=== PATIENT | female | born 1940 | race Hispanic/Latino ===

== ENCOUNTER 2018-02-26 16:17 | Emergency (ER) | payer MEDICARE, OTHER ==
[~2018-02-26 16:17] MED LIST: ISOVUE-370 76%-LOCM 1 ML ONE
[2018-02-26 17:02] LABS: #Lymphocytes 1.8 thou/uL (1.20-3.40); #Monocytes 0.4 thou/uL (0.11-0.59); #Neutrophils 2.8 thou/uL (1.40-6.50); %Basophils 0.9 % (0.0-1.0); %Eosinophils 0.6 % (0.0-10.0); %Lymphocytes 34.5 % (21.0-51.0); %Monocytes 8.3 % (0.0-10.0); %Neutrophils 55.8 % (42.0-75.0); Hemoglobin 12.4 g/dL (12.0-16.0); Mean Corpuscular HGB CONC 31.9 g/dL (32.0-36.0); Mean Corpuscular Hemoglobin 30.7 pg (27.0-31.0); Mean Corpuscular Volume 96.1 fL (78.0-98.0); Mean Platelet Volume 6.7 fL (7.4-10.4); Platelet Count 254 thou/uL (130-400); RBC Distribution Width 11.5 % (11.5-14.5); Red Blood Cell (RBC) Count 4.04 mill/uL (4.20-5.40); White Blood Cell (WBC) Count 5.1 thou/uL (4.8-10.8)
[2018-02-26 17:22] LABS: ALT (SGPT) 14 U/L (8-55); AST (SGOT) 20 U/L (5-34); Albumin 4.5 g/dL (3.4-4.8); Alkaline Phosphatase 58 U/L (40-150); Anion Gap 14 mmol/L (10-20); BUN (Urea Nitrogen) 23 mg/dL (9.8-20.1); Bilirubin, Total 0.4 mg/dL (0.2-1.2); Calc. Creatinine Clearance 0 mL/min (70-130); Calcium 9.9 mg/dL (7.8-10.44); Carbon Dioxide 26 mmol/L (23-31); Chloride 104 mmol/L (98-107); Estimated GFR-MDRD 72; Globulin 2.9 g/dL (2.4-3.5); Glucose 65 mg/dL (83-110); Potassium 4.1 mmol/L (3.5-5.1); Protein, Total 7.4 g/dL (6.0-8.3); Sodium 140 mmol/L (136-145)
[2018-02-26 17:26] LABS: CKMB 1.6 ng/mL (0-6.6); Troponin I Less than 0.010 ng/mL (< 0.028)
--- NOTE | 2018-02-26 17:59 | RAD ---
PORTABLE CHEST ONE VIEW: 02/26/18 at 4:38 p.m. HISTORY: Chest pain and shortness of breath.. FINDINGS: The heart size is normal. The lungs are expanded without focal areas of consolidation, pneumothorax o r pleural effusions. There are postop changes and metallic hardware in the thoracolumbar spine. IMPRESSION: No acute process. POS: [facility]
[2018-02-26 19:13] LABS: Troponin I Less than 0.010 ng/mL (< 0.028)
--- NOTE | 2018-02-26 21:22 | CT ---
CONTRAST ENHANCED CTA IMAGES CHEST: 02/26/18 HISTORY: Substernal chest pain. Contrast enhanced CTA of the chest is performed. 2D and 3D reconstructed images performed on an [employer] 3D workstation. CTA chest demonstrates extensive thoracic spine and lumbar spine surgical hardware in place. The mediastinum is unremarkable. Extensive coronary artery calcification seen. Mitral annular calcifi cations also seen. No evidence of lung parenchymal lesions seen. No evidence of filling defects seen in the pulmonary arteries to suggest pulmonary emboli. There appears to be some area of heterogeneity, possibly in the mid portion of the right kidney possi angela representing right renal mass that correlate with pre and postcontrast enhanced dedicated renal C T to evaluate for partial voluming versus right renal malignancy. There is some fullness also seen in the left adrenal gland. Correlate with dedicated dynamic pre and post contrast enhanced CT to evaluate for possible left adrenal mass versus adenoma. This area of lef t adrenal fullness measures approximately 1.4 x 2.5 cm. There is also marked atherosclerotic calcific ation involving the origin of the left internal carotid artery. This may represent significant left i nternal carotid artery disease. Correlate with CT angiography of the carotid arteries and vascular bocanegra rgical consultation. IMPRESSION: 1. Possible right renal and left adrenal masses. 2. No evidence of pulmonary emboli. POS: [facility]
== END 2018-02-26 19:47 | disposition home or self-care (01) ==
LOC: ERS 16:17
DX: I65.22 Occlusion and stenosis of left carotid artery (principal); R07.89 Other chest pain; N28.89 Other specified disorders of kidney and ureter; R22.0 Localized swelling, mass and lump, head; I10 Essential (primary) hypertension; E11.9 Type 2 diabetes mellitus without complications; Z79.84 Long term (current) use of oral hypoglycemic drugs; Z79.899 Other long term (current) drug therapy
CPT/HCPCS: 36415; 71045; 71275; 80053; 82553; 83690; 83880; 84484; 85025; 85379; 93005; 96360

== ENCOUNTER 2018-03-10 14:07 | Observation (INO) | payer MEDICARE, OTHER ==
[2018-03-10 14:46] LABS: #Lymphocytes 1.5 thou/uL (1.20-3.40); #Monocytes 0.4 thou/uL (0.11-0.59); #Neutrophils 4.3 thou/uL (1.40-6.50); %Basophils 0.2 % (0.0-1.0); %Eosinophils 0.7 % (0.0-10.0); %Lymphocytes 24.2 % (21.0-51.0); %Monocytes 6.9 % (0.0-10.0); Hemoglobin 10.4 g/dL (12.0-16.0); Mean Corpuscular HGB CONC 31.9 g/dL (32.0-36.0); Mean Corpuscular Volume 97.2 fL (78.0-98.0); Mean Platelet Volume 6.6 fL (7.4-10.4); Platelet Count 220 thou/uL (130-400); RBC Distribution Width 11.4 % (11.5-14.5); Red Blood Cell (RBC) Count 3.37 mill/uL (4.20-5.40); White Blood Cell (WBC) Count 6.3 thou/uL (4.8-10.8)
[2018-03-10] MEDS ORDERED: Morphine 2 MG/ML SYRINGE ONE (15:11)
[2018-03-10 15:13] LABS: ALT (SGPT) 13 U/L (8-55); AST (SGOT) 17 U/L (5-34); Albumin 3.5 g/dL (3.4-4.8); Alkaline Phosphatase 46 U/L (40-150); Anion Gap 11 mmol/L (10-20); BUN (Urea Nitrogen) 30 mg/dL (9.8-20.1); Bilirubin, Total 0.3 mg/dL (0.2-1.2); Calc. Creatinine Clearance 0 mL/min (70-130); Calcium 8.6 mg/dL (7.8-10.44); Carbon Dioxide 22 mmol/L (23-31); Chloride 109 mmol/L (98-107); Estimated GFR-MDRD 61; Globulin 2.4 g/dL (2.4-3.5); Glucose 150 mg/dL (83-110); Potassium 4.7 mmol/L (3.5-5.1); Protein, Total 5.9 g/dL (6.0-8.3); Sodium 137 mmol/L (136-145)
[2018-03-10 15:20] LABS: CKMB 1.8 ng/mL (0-6.6); Troponin I Less than 0.010 ng/mL (< 0.028)
--- NOTE | 2018-03-10 16:10 | RAD ---
FRONTAL VIEW CHEST: Indication: Chest pain. FINDINGS: There is extensive hardware of the imaged thoracolumbar spine. There is no evidence of lobar consolid ation or pneumothorax. There is slight blunting of the left lateral costophrenic sulcus which could b e on the basis of mild pleural fluid versus pleural thickening. Mild atelectasis also suggested. IMPRESSION: Mild left basilar density as discussed above. Follow up with two view chest could be obtained for con tinued assessment. POS: [facility]
--- NOTE | 2018-03-10 16:34 | CT ---
CT OF HEAD NONCONTRAST: 03/10/18 INDICATION: Pain with facial droop. COMPARISON: 04/25/[address] FINDINGS: There is stable size of ventricular system. Mild chronic ischemic disease is present involving cerebr al white matter. There is age indeterminate hypoattenuation of the right mcneill radiata. No intracran ial hemorrhage. IMPRESSION: 1. No acute intracranial hemorrhage or mass effect. 2. Age indeterminate hypoattenuation of the right mcneill radiata. This may relate to an area of recent ischemia and if necessary could be further assessed with dedicated MRI. 3. No acute intracranial hemorrhage or mass effect. POS: [facility]
[2018-03-10] MEDS ORDERED: Ondansetron PF 4 MG/2 ML Vial IVP PRN (17:22)
[2018-03-10] MEDS ORDERED: Ondansetron ODT 4 MG TAB PO PRN (17:22)
[2018-03-10] MEDS ORDERED: Insulin Regular 300 UNITS/3 ML VIAL SC PRN (17:26)
[2018-03-10] MEDS ORDERED: Dextrose 50% Abboject 50 ML SYRINGE SLOW IVP PRN (17:26)
[2018-03-10] MEDS ORDERED: Dextrose 5% in Water 1,000 ML IV PRN (17:26)
[2018-03-10 17:34] VITALS: BMI 27.6
[2018-03-10] MEDS: Sodium Chloride 0.9% 1,000 ML IV SCH (18:30)
[2018-03-10] MEDS: traMADol HCl 50 MG TAB PO PRN (19:02)
[2018-03-10 19:09] LABS: Troponin I Less than 0.010 ng/mL (< 0.028)
[2018-03-10 21:50] LABS: Troponin I Less than 0.010 ng/mL (< 0.028)
[2018-03-10] MEDS: Nitroglycerin 2% Ointment 1 INCH/1 GM Packet TOP SCH ×2 (22:23→22:27)
--- NOTE | 2018-03-11 01:03 | HP ---
ADMITTING PHYSICIAN: Robert Guzman M.D. HISTORY OF PRESENT ILLNESS: Patient is a 77-year-old female with known history of type 2 di abetes mellitus and hypertension. She presented to the emergency room complaining of substernal ches t pain in middle of her chest associated with shortness of breath. She was actually seen on 8 with similar episode. She was seen and evaluated, but discharged to home. She reported to my offi ce 5 days later, she was given a prescription for sublingual nitroglycerin as well as placed on aspir in 325 mg daily. Attempts were made to try to get her into Cardiology. She reported to the emergenc y room today due to the onset of chest pain. She did take a nitroglycerin at home, became hypotensiv e. She possibly was brought to the emergency room. She does note her chest pain improved after she took a nitroglycerin at this time. She does note she has no further chest pain or shortness of breat h. She notes that she was not very active at all, mostly noted the chest pain occurred at rest. Thi s is the second episode of chest pain, she has had since her ER visit approximately 10 days ago. At this time, she is resting comfortably, no other medical complaints are noted. No nausea, vomiting , diarrhea. She does note the chest pain was mainly in the center of her chest, did seem to have domingo e radiation to her left arm, as she did note some associated dyspnea. No swelling of her lower extre mities, otherwise has been noted. She has no prior history of atherosclerotic coronary artery diseas e. Otherwise, no other medical complaints noted at this time. ALLERGIES: She has no known allergies. CURRENT MEDICATIONS: Include metformin and glipizide as well as other antihypertensive agents that h ave not been reconciled at this time. PAST MEDICAL HISTORY: Positive for type 2 diabetes mellitus and hypertension. PAST SURGICAL HISTORY: Positive for multiple back surgeries, hysterectomy as well as gallbladder maury hermila. SOCIAL AND PERSONAL HISTORY: She is . Her has rather significant dementia. She is a primary caregiver at home. FAMILY HISTORY: Noncontributory at this time. PHYSICAL EXAMINATION: VITAL SIGNS: Blood pressure 120/52, pulse 98, respirations 18, O2 sat at 95%. GENERAL: She is alert, active, in no distress at this time. HEENT: Normocephalic, atraumatic. Sclerae and conjunctivae are clear. Throat is clear. NECK: Supple, full range of motion, no masses. LUNGS: Clear. HEART: Reveals a regular rate and rhythm without murmur, gallops, or rubs. ABDOMEN: Soft, nontender, bowel sounds are active. There is no hepatosplenomegaly noted. No eviden ce of any rebound or guarding otherwise noted. EXTREMITIES: Showed no evidence of any clubbing, edema, or cyanosis otherwise. Pulses are intact di stally to both arms and lower extremities. LABORATORY DATA: Hemoglobin is 10.4, hematocrit 32.7. Sodium 137, potassium 4.7, chloride 109, CO2 of 22, BUN 30, creatinine 0.9. Initial troponin is less than 0.01. EKG reveals sinus rhythm without acute changes. Chest x-ray is otherwise normal. CT scan of the brain was done here in the emergenc y room, which was normal as well. IMPRESSION: This is a 77-year-old female with risk factors for development of angina includ ing type 2 diabetes mellitus, hypertension who probably does have in my opinion some form of unstable angina or cardiac disease present at this time. PLAN: I discussed the findings with the patient and recommended that she would admit, to be placed i n observation at this time. We will get Cardiology consult. I feel like the best course of action randi ay be directed cardiac catheterization. I will leave that up to Cardiology due to her back con dition, she may not be able to participate in a stress test situation. Nonetheless, she is stable at this time. We will continue to monitor her situation through the night.
[2018-03-11] MEDS: Sodium Chloride 0.9% 1,000 ML IV SCH (08:36)
[2018-03-11] MEDS: Terazosin HCl 5 MG CAP PO SCH (08:57)
[2018-03-11] MEDS ORDERED: Aspirin 325 MG TAB PO SCH (09:00)
[2018-03-11] MEDS ORDERED: Lidocaine 1% w/Epinephrine 1:100K 30 ML VIAL ONE ×2 (12:17)
[2018-03-11] MEDS ORDERED: Lidocaine 1% (PF) 30 ML VIAL ONE (12:18)
--- NOTE | 2018-03-11 12:31 | CON ---
DATE OF CONSULTATION: 03/11/2018 REASON FOR CONSULTATION: Chest pain. HISTORY OF PRESENT ILLNESS: Ms. Ponce is a very pleasant 77-year-old female who comes t o the hospital for chest pain. She was at home and had an episode of chest tightness. She took a bocanegra blingual nitro and it dropped her blood pressures, so she was brought in for evaluation for this. Elsie carter had a similar episode back in February. She was admitted and discharged home. She saw Dr. Guzman, her primary care doctor a few days after that admission in early February and was prescribed aspirin and sublingual nitro so she had the sublingual nitro with her. She presented again today secondary t o ongoing episodes of chest pain. PAST MEDICAL HISTORY: 1. Type 2 diabetes. 2. Hypertension. PAST SURGICAL HISTORY: 1. Multiple back surgeries. 2. Hysterectomy. 3. Cholecystectomy. OUTPATIENT MEDICATIONS: 1. Nitroglycerin sublingual. 2. Candesartan 60 mg b.i.d. 3. Metformin 500 mg b.i.d. 4. Glipizide 10 mg b.i.d. 5. Terazosin 5 mg a day. ALLERGIES: No known drug allergies. SOCIAL HISTORY: No alcohol, tobacco or drugs. She lives at home with her who has very signi ficant dementia and is actually dying from this according to Ms. Ponce and it is very stressful f or her. FAMILY HISTORY: Noncontributory. REVIEW OF SYSTEMS: A 12-point review of systems was done and is all negative unless stated in the hi story of present illness. PHYSICAL EXAMINATION: VITAL SIGNS: Temperature 97.9, pulse 90, respiration rate 20, satting 91% on room air, blood pressur e 159/71. GENERAL: Awake, alert, oriented x3, in no distress. HEENT: Normocephalic, atraumatic. NECK: Supple. LUNGS: Clear. CARDIOVASCULAR: S1, S2, no S3, S4, no murmurs. ABDOMEN: Soft, positive bowel sounds. EXTREMITIES: No edema. SKIN: Warm and dry. LABORATORY WORK: Reviewed. CBC with a white count of 6.3, hemoglobin 10.4, platelet count 220. Lillian paul with a chloride of 109, carbon dioxide 22, BUN of 30, creatinine 0.9, GFR was 61. Troponin is undetectable x3. CK-MB is normal. Glucose was 156. Albumin of 3.5. EKG was reviewed. ASSESSMENT AND PLAN: 1. Chest pain concerning for unstable angina. 2. Coronary artery disease. This is evidenced by the recent CT of the chest that showed significant coronary artery calcification worse on the left anterior descending. 3. Peripheral vascular disease: Has some calcifications on the carotid artery. She will need a Do ppler ultrasound of the carotids during this admission and possibly CT angiogram. PLAN: The patient needs to be further risk stratify with a heart catheterization. We spoke at len h about the risks and benefits of the procedure, risks including, but not limited to stroke, CO, deat h, bleeding and need for blood transfusion, limb loss, organ loss. The patient verbalized understand ing of this and agrees to proceed. Further recommendations per results of coronary angiogram.
[2018-03-11] MEDS: Nitroglycerin 2% Ointment 1 INCH/1 GM Packet TOP SCH ×2 (12:40→19:39)
[2018-03-11] MEDS ORDERED: Midazolam HCl 2 mg/2 ml Vial ONE (12:46)
[2018-03-11] MEDS ORDERED: Fentanyl 100 MCG/2 ML VIAL ONE (12:47)
--- NOTE | 2018-03-11 13:00 | PRG ---
DATE OF SERVICE: 03/11/2018 Ms. Ponce had an uneventful night. She was unsure if the laboratory helper had visited with her. Dr. Monteiro has seen her now. I saw her early this morning. She has no further complaints. PHYSICAL EXAMINATION: VITAL SIGNS: BP 115/71, temperature 97.9. LUNGS: Clear. HEART: Reveals no murmur. LABORATORY: Troponins are otherwise negative. IMPRESSION: This is a 77-year-old female with high risk factors for development for atheros clerotic coronary artery disease. PLAN: She is being taken to the [facility] at this time.
[2018-03-11] MEDS ORDERED: TICAGRELOR 90 MG TABLET ONE (13:36)
[2018-03-11] MEDS ORDERED: Heparin 10,000 UNITS/1 ML VIAL ONE (13:36)
[2018-03-11] MEDS ORDERED: Nitroglycerin 100MG/250ML BOT 250 ML ONE (13:36)
[2018-03-11] MEDS ORDERED: Iopamidol 370 76% 100 ML VIAL ONE (13:53)
[2018-03-11] MEDS ORDERED: Iopamidol 370 76% 50 ML VIAL FS ONE (13:53)
[2018-03-11] MEDS ORDERED: Nitroglycerin 0.4 MG TAB (25 Tab Bottle) SL PRN (14:19)
[2018-03-11] MEDS ORDERED: Sodium Chloride 0.9% 1,000 ML IV SCH (14:30)
[2018-03-11] MEDS: Carvedilol 3.125 MG TAB PO SCH (19:49)
[2018-03-11] MEDS: TICAGRELOR 90 MG TABLET PO SCH (19:50)
[2018-03-11] MEDS: traMADol HCl 50 MG TAB PO PRN (19:50)
[2018-03-11] MEDS ORDERED: Atorvastatin Calcium 40 MG TAB PO SCH (21:00)
[2018-03-12] MEDS: traMADol HCl 50 MG TAB PO PRN (02:06)
[2018-03-12 06:35] LABS: #Lymphocytes 1.2 thou/uL (1.20-3.40); #Monocytes 0.5 thou/uL (0.11-0.59); #Neutrophils 5.3 thou/uL (1.40-6.50); %Basophils 0.1 % (0.0-1.0); %Eosinophils 0.6 % (0.0-10.0); %Lymphocytes 17.3 % (21.0-51.0); %Monocytes 7.1 % (0.0-10.0); Hemoglobin 9.5 g/dL (12.0-16.0); Mean Corpuscular HGB CONC 32.8 g/dL (32.0-36.0); Mean Corpuscular Hemoglobin 31.1 pg (27.0-31.0); Mean Corpuscular Volume 94.7 fL (78.0-98.0); Mean Platelet Volume 6.8 fL (7.4-10.4); Platelet Count 209 thou/uL (130-400); RBC Distribution Width 11.4 % (11.5-14.5); Red Blood Cell (RBC) Count 3.04 mill/uL (4.20-5.40); White Blood Cell (WBC) Count 7.1 thou/uL (4.8-10.8)
[2018-03-12 06:48] LABS: ALT (SGPT) 14 U/L (8-55); AST (SGOT) 22 U/L (5-34); Albumin 3.3 g/dL (3.4-4.8); Alkaline Phosphatase 42 U/L (40-150); Anion Gap 9 mmol/L (10-20); BUN (Urea Nitrogen) 14 mg/dL (9.8-20.1); Bilirubin, Total 0.6 mg/dL (0.2-1.2); Calc. Creatinine Clearance 67 mL/min (70-130); Calcium 8.9 mg/dL (7.8-10.44); Carbon Dioxide 27 mmol/L (23-31); Chloride 106 mmol/L (98-107); Estimated GFR-MDRD 76; Globulin 2.3 g/dL (2.4-3.5); Glucose 87 mg/dL (83-110); Potassium 4.1 mmol/L (3.5-5.1); Protein, Total 5.6 g/dL (6.0-8.3); Sodium 138 mmol/L (136-145)
--- NOTE | 2018-03-12 08:12 | PRG ---
DATE OF SERVICE: 03/12/2018. SUBJECTIVE: Ms. Ponce is status post cardiac catheterization with stent placement. She is doing well. She has no medical complaints. OBJECTIVE: VITAL SIGNS: Blood pressure 134/62, O2 sats 94%. LUNGS: Clear. HEART: Reveals a regular rate and rhythm without murmurs, gallops, or rubs. LABORATORY DATA: Hemoglobin 9.5, hematocrit 28.8. Chemistry: Sodium is 138, creatinine 0.74. Her blood sugars are adequately controlled. IMPRESSION: Atherosclerotic coronary artery disease, status post cardiac catheterization with stent placement, now on Brilinta. PLAN: The patient possibly could be discharged today from my standpoint that would be safe. I have informed her to withhold from metformin until Thursday. She knows that she needs to follow up with me in approximately 10 days. Further followup will be as an outpatient with Cardiology.
[2018-03-12] MEDS ORDERED: Aspirin 325 MG TAB PO SCH (08:27)
[2018-03-12] MEDS ORDERED: Lisinopril 2.5 MG TAB PO SCH (09:00)
[2018-03-12] MEDS: TICAGRELOR 90 MG TABLET PO SCH (09:08)
[2018-03-12] MEDS: Terazosin HCl 5 MG CAP PO SCH (09:08)
[2018-03-12] MEDS: Carvedilol 3.125 MG TAB PO SCH (09:08)
--- NOTE | 2018-03-12 10:09 | PDOC.CTH ---
Cardiology Progress Note - Subjective She is doing well. No chest pain. Has a small bruise on her right groin but no hematoma. - Objective Vital Signs Temp Pulse Resp BP Pulse Ox 03/12/18 07:47 97.3 F L 83 22 H 138/61 93 L 03/12/18 06:56 79 20 134/62 94 L 03/12/18 02:45 93 L 03/11/18 23:16 98.4 F 81 15 117/56 L 91 L Weight 146 lb 6.4 oz 03/11/18 03/12/18 03/13/18 06:59 06:59 06:59 Intake Total 924 1510 Output Total 375 400 Balance 549 1110 - Physical Examination General/Neuro: alert & oriented x3, NAD Neck: no JVD present Lungs: CTA, unlabored respirations Heart: RRR Abdomen: NT/ND Extremities: other: (no edema) - Telemetry Telemetry Rhythm: NSR - Labs Result Diagrams: 03/12/18 05:54 03/12/18 05:54 Troponin/CKMB CK-MB (CK-2) 1.8 ng/mL (0-6.6) 03/10/18 14:35 Troponin I Less than 0.010 ng/mL (< 0.028) 03/10/18 21:14 - Assessment/Plan 1. Unstable angina 2. CAD. 3. S/P Stent to the LAD and RCA. PLAN: - ROSSY with brilinta and aspirin 81 mg daily - Statin, BB, ARB. - May discharge home. - Will follow up in 3 weeks as previously scheduled.
[2018-03-12 11:38] VITALS: TEMP 98.2
[2018-03-12] MEDS: Nitroglycerin 2% Ointment 1 INCH/1 GM Packet TOP SCH (15:01)
[2018-03-12 15:19] VITALS: BP 130/63
--- NOTE | 2018-03-12 17:05 | EKG ---
Test Reason : CP Blood Pressure : / mmHG Vent. Rate : 095 BPM Atrial Rate : 095 BPM P-R Int : 116 ms QRS Dur : 076 ms QT Int : 358 ms P-R-T Axes : 038 011 008 degrees QTc Int : 449 ms Normal sinus rhythm Normal ECG Confirmed by BENJY MORENO ([id number]), continuity editor TONI ROGERS ([id number]) on 03/12/2018 5:04:28 PM Referred By: Confirmed By:BENJY MORENO
--- NOTE | 2018-03-17 08:11 | EKG ---
Test Reason : POST STENT-1LAD/1RCA Blood Pressure : / mmHG Vent. Rate : 081 BPM Atrial Rate : 080 BPM P-R Int : 132 ms QRS Dur : 076 ms QT Int : 376 ms P-R-T Axes : 062 029 030 degrees QTc Int : 436 ms Undetermined rhythm Otherwise normal ECG When compared with ECG of 10-MAR-2018 14:10, (Unconfirmed) Current undetermined rhythm precludes rhythm comparison, needs review Confirmed by DR. Leslee RUGGIERO ([id number]) on 03/17/2018 8:10:36 AM Referred By: ZACH Confirmed By:DR. Leslee RUGGIERO
--- NOTE | 2018-03-17 08:12 | EKG ---
Test Reason : Blood Pressure : / mmHG Vent. Rate : 080 BPM Atrial Rate : 080 BPM P-R Int : 150 ms QRS Dur : 076 ms QT Int : 378 ms P-R-T Axes : 063 013 020 degrees QTc Int : 435 ms Normal sinus rhythm Low voltage QRS Borderline ECG When compared with ECG of 11-MAR-2018 14:45, (Unconfirmed) Previous ECG has undetermined rhythm, needs review Confirmed by DR. Leslee RUGGIERO ([id number]) on 03/17/2018 8:12:32 AM Referred By: ZACH Confirmed By:DR. Leslee RUGGIERO
== END 2018-03-12 15:39 | disposition home or self-care (01) ==
LOC: ERS 14:07 → 2SW 17:21
PROVIDERS: ADMIT Family Medicine; ATTEND Family Medicine
PROC: 027135Z Dilation of Coronary Artery, Two Arteries with Two Drug-eluting Intraluminal Devices, Percutaneous Approach (ICD-10-PCS; principal; 2018-03-11)
PROC: 4A033BC Measurement of Arterial Pressure, Coronary, Percutaneous Approach (ICD-10-PCS; 2018-03-11)
DX: I25.110 Atherosclerotic heart disease of native coronary artery with unstable angina pectoris (principal); I10 Essential (primary) hypertension; E11.9 Type 2 diabetes mellitus without complications; I73.9 Peripheral vascular disease, unspecified; Z95.5 Presence of coronary angioplasty implant and graft; Z79.84 Long term (current) use of oral hypoglycemic drugs; Z79.899 Other long term (current) drug therapy
CPT/HCPCS: 70450; 71045; 80053 ×2; 82553; 82962 ×3; 84484 ×2; 85025 ×2; 85347; 93005 ×2; 93454; 93571; 93798; 94760; 96361 ×2; 96374; 99285; C1760; C1769 ×3; C1874; C1887; C9600; C9601; G0378 ×2; 36415; 36416; 92928; 92929; 93010; 99152; 99153; J0153; J1644; J1815; J2001; J2250; J2270; J3010

== ENCOUNTER 2018-03-16 15:42 | Observation (INO) | payer MEDICARE, OTHER ==
[2018-03-16 16:47] LABS: #Eosinphils 0.1 thou/uL (0.0-0.7); #Monocytes 0.6 thou/uL (0.11-0.59); #Neutrophils 4.5 thou/uL (1.40-6.50); %Basophils 0.4 % (0.0-1.0); %Eosinophils 0.9 % (0.0-10.0); %Lymphocytes 16.4 % (21.0-51.0); %Monocytes 9.1 % (0.0-10.0); %Neutrophils 73.2 % (42.0-75.0); Hemoglobin 9.5 g/dL (12.0-16.0); Mean Corpuscular HGB CONC 32.9 g/dL (32.0-36.0); Mean Corpuscular Hemoglobin 31.4 pg (27.0-31.0); Mean Corpuscular Volume 95.6 fL (78.0-98.0); Mean Platelet Volume 6.7 fL (7.4-10.4); Platelet Count 249 thou/uL (130-400); RBC Distribution Width 11.9 % (11.5-14.5); Red Blood Cell (RBC) Count 3.03 mill/uL (4.20-5.40); White Blood Cell (WBC) Count 6.1 thou/uL (4.8-10.8)
[2018-03-16 17:10] LABS: ALT (SGPT) 16 U/L (8-55); AST (SGOT) 19 U/L (5-34); Albumin 3.8 g/dL (3.4-4.8); Alkaline Phosphatase 50 U/L (40-150); Anion Gap 10 mmol/L (10-20); BUN (Urea Nitrogen) 17 mg/dL (9.8-20.1); Bilirubin, Total 0.5 mg/dL (0.2-1.2); Calc. Creatinine Clearance 0 mL/min (70-130); Calcium 9.1 mg/dL (7.8-10.44); Carbon Dioxide 26 mmol/L (23-31); Chloride 103 mmol/L (98-107); Estimated GFR-MDRD 54; Globulin 2.7 g/dL (2.4-3.5); Glucose 213 mg/dL (83-110); Potassium 4.1 mmol/L (3.5-5.1); Protein, Total 6.5 g/dL (6.0-8.3); Sodium 135 mmol/L (136-145)
[2018-03-16 17:12] LABS: CKMB 1.4 ng/mL (0-6.6); Troponin I Less than 0.010 ng/mL (< 0.028)
--- NOTE | 2018-03-16 18:20 | RAD ---
PORTABLE CHEST ONE VIEW: Date: 03-16-18 Time: 3:48 p.m. History: Chest pain. FINDINGS/IMPRESSION: Comparison made with exam of 03-10-18. Post op changes and metallic hardware in the spine are again seen. The heart size is normal. No lobar consolidation or pneumothoraces or large effusions are seen. There is blunting of the costophrenic a ngles. POS: [facility]
[2018-03-16] MEDS ORDERED: HumaLOG 300 UNITS/3 ML VIAL SC PRN (20:03)
[2018-03-16] MEDS ORDERED: Nitroglycerin 0.4 MG TAB (25 Tab Bottle) SL PRN (20:09)
[2018-03-16 20:13] LABS: Troponin I Less than 0.010 ng/mL (< 0.028)
[2018-03-16 20:19] VITALS: BMI 28.9
[2018-03-16] MEDS ORDERED: Acetaminophen 325 MG TAB PO PRN (20:19)
[2018-03-16] MEDS ORDERED: Atorvastatin Calcium 40 MG TAB PO SCH (21:00)
[2018-03-16] MEDS: glipiZIDE 10 MG TAB PO SCH (21:25)
[2018-03-16] MEDS: metFORMIN 500 MG TAB PO SCH (21:25)
[2018-03-16] MEDS: TICAGRELOR 90 MG TABLET PO SCH (21:25)
[2018-03-16] MEDS: Carvedilol 3.125 MG TAB PO SCH (21:25)
[2018-03-16 22:52] LABS: Troponin I Less than 0.010 ng/mL (< 0.028)
[2018-03-16] MEDS: ALPRAZolam 0.25 MG TAB PO PRN (23:25)
--- NOTE | 2018-03-17 00:11 | HP ---
PRIMARY CARE PHYSICIAN: Dr. Robert Guzman. CHIEF COMPLAINT: Anxiety, chest pain. HISTORY OF PRESENT ILLNESS: This is a 77-year-old female patient with a history of type 2 diabetes, hypertension, hyperlipidemia with a recent admission on 03/10/2018 for chest pain, abnormal cardiac catheterization, and stent placement, who was discharged home in good condition on 03/12/2018. Three days ago, her who has been ill, , and she has had increased stress and anxiety since that time. She was at home today under duress and stress from the of her when she started feeling overwhelmed. She developed chest pain, which improved with nitroglycerin. She had some shortness of breath, but no diaphoresis. She felt weak, called her daughter, but could not get out of bed at that time. She denies any fall, denies syncope, but increased weakness. EMS arrived and brought her to the emergency department. She is ruling out for an AR with negative cardiac enzymes and no EKG changes from her prior admission, but now being admitted due to the onset of her chest pain and shortness of breath as well as recent cardiac catheterization with stent placement, 6 days ago. She was given her aspirin in the emergency department and no other medications. She does feel better and now that she is resting. Due to her chest pain, elevated blood pressure, and stress, she is being admitted for observation. PAST MEDICAL HISTORY: Recently diagnosed coronary artery disease, status post stent placement; hypertension; hyperlipidemia; type 2 diabetes; history of back pain. MEDICATIONS: Include aspirin 81 mg daily, Lipitor 40 mg daily, candesartan 16 mg daily, carvedilol 3.125 mg b.i.d., glipizide 10 mg b.i.d., metformin 500 mg b.i.d., terazosin 5 mg daily, Brilinta 90 mg b.i.d. ALLERGIES: No known drug allergies. PAST SURGICAL HISTORY: Includes recent cardiac catheterization with stent placement, multiple back surgeries, hysterectomy, gallbladder surgery. 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 Quit smoking about 25 years ago. No alcohol. She has a supportive family. FAMILY HISTORY: Positive for heart disease in her father. REVIEW OF SYSTEMS: As per the history of present illness: General: Denies any recent fevers, chills, or recent illness. HEENT: Denies headache, visual, or hearing changes. Cardiac: As per the history of present illness. Pulmonary : Denies cough or hemoptysis. Gastrointestinal: No nausea, vomiting, abdominal pain, melena, hematochezia. Genitourinary: Denies dysuria or hematuria. Neurologic: No weakness, seizures, or syncope. Musculoskeletal: Positive chronic back pain. PHYSICAL EXAMINATION: VITAL SIGNS: Temperature 97.9, pulse of 80, respirations 18, blood pressure 157 /71, pulse ox is 98% on room air. GENERAL: She is awake and alert, in no acute distress. Speech is clear. NECK: Supple, no bruits. HEART: Regular rate and rhythm. LUNGS: Clear bilaterally. ABDOMEN: Positive bowel sounds, soft, nontender, nondistended. EXTREMITIES: No clubbing, cyanosis, or edema, 2+ peripheral pulses bilaterally. PSYCH: anxious, flat affect. Tearful at times LABORATORY DATA AND X-RAY FINDINGS: White blood cell count 6100, hemoglobin and hematocrit 9.5 and 28.9, which is stable from her baseline, platelets of 249. Sodium 135, potassium 4.1, chloride 103, CO2 of 26, BUN and creatinine 17 and 1.0 with GFR of 54. Serum glucose of 213. Accu-Chek of 174. AST and ALT are normal. Troponin I is less than 0.01 x2. Albumin of 3.8. Chest x-ray shows no active disease. ASSESSMENT AND PLAN: This is a 77-year-old female patient with a recent diagnosis of coronary artery disease, status post cardiac catheterization with stent placement, postop day #6 with onset of chest pain and anxiety. 1. Chest pain. Continue rule out AR protocol. We will notify Cardiology for consultation. Continue aspirin and Brilinta. 2. Anxiety and grieving process. We will initiate Zoloft 25 mg daily and Xanax p.r.n. anxiety and panic. 3. Type 2 diabetes. Continue oral meds and insulin sliding scale. 4. Hypertension. We will continue the oral meds including candesartan and terazosin. MTDD
[2018-03-17 03:58] LABS: Anion Gap 11 mmol/L (10-20); BUN (Urea Nitrogen) 16 mg/dL (9.8-20.1); Calc. Creatinine Clearance 65 mL/min (70-130); Calcium 9.1 mg/dL (7.8-10.44); Carbon Dioxide 25 mmol/L (23-31); Chloride 108 mmol/L (98-107); Estimated GFR-MDRD 70; Glucose 62 mg/dL (83-110); Potassium 3.5 mmol/L (3.5-5.1); Sodium 140 mmol/L (136-145)
[2018-03-17] MEDS: TICAGRELOR 90 MG TABLET PO SCH (08:00)
[2018-03-17] MEDS: glipiZIDE 10 MG TAB PO SCH (08:00)
[2018-03-17] MEDS: Carvedilol 3.125 MG TAB PO SCH (08:00)
[2018-03-17] MEDS: metFORMIN 500 MG TAB PO SCH (08:00)
--- NOTE | 2018-03-17 08:01 | DPRG ---
DATE OF SERVICE: 03/17/2018 SUBJECTIVE: Ms. Ponce states she is feeling better. She has had no further chest pain, no short ness of breath. She is still some stress due to recent of her . PHYSICAL EXAMINATION: VITAL SIGNS: Blood pressure 146/59. LABORATORY: All troponins are normal and negative. Chemistry is normal. LUNGS: Clear. HEART: Reveals no murmur. IMPRESSION: 1. Acute anxiety reaction. 2. History of atherosclerotic coronary artery disease. PLAN: I feel she is stable to be discharged home. She will follow up with Dr. Monteiro as an outpatie nt. We have prescribed sertraline, and Xanax for home use. On discharge she was to maintain her home medications of terazosin 5 mg daily, metformin 500 mg b.i.d ., glipizide 10 mg b.i.d., Brilinta 90 mg b.i.d., carvedilol 3.125 mg b.i.d., candesartan 16 mg daily , atorvastatin 40 mg daily, aspirin 81 mg daily. Additionally, given prescription for sertraline 25 mg daily, as well as Xanax 0.25 mg p.o. t.i.d. p.r.n. stress and anxiety.
[2018-03-17] MEDS: ALPRAZolam 0.25 MG TAB PO PRN (08:04)
[2018-03-17] MEDS ORDERED: Aspirin 81 mg Enteric Coated Tablet PO SCH (09:00)
[2018-03-17] MEDS ORDERED: Terazosin HCl 5 MG CAP PO SCH ×2 (09:00)
[2018-03-17 11:29] VITALS: BP 155/67; TEMP 97.7
[2018-03-17] MEDS ORDERED: Sodium Chloride 0.9% 500 ML IV SCH (11:45)
--- NOTE | 2018-03-21 22:06 | EKG ---
Test Reason : Blood Pressure : / mmHG Vent. Rate : 068 BPM Atrial Rate : 068 BPM P-R Int : 152 ms QRS Dur : 086 ms QT Int : 402 ms P-R-T Axes : 057 029 038 degrees QTc Int : 427 ms Normal sinus rhythm Normal ECG When compared with ECG of 16-MAR-2018 15:52, (Unconfirmed) No significant change was found Confirmed by ASAD MAC ([id number]) on 03/21/2018 10:06:00 PM Referred By: KELTON Confirmed By:ASAD MAC
--- NOTE | 2018-03-21 22:08 | EKG ---
Test Reason : CODE GREEN Blood Pressure : / mmHG Vent. Rate : 068 BPM Atrial Rate : 068 BPM P-R Int : 166 ms QRS Dur : 082 ms QT Int : 404 ms P-R-T Axes : 072 033 031 degrees QTc Int : 429 ms Normal sinus rhythm with sinus arrhythmia ST elevation, consider early repolarization Borderline ECG When compared with ECG of 17-MAR-2018 06:40, (Unconfirmed) No significant change was found Confirmed by ASAD MAC ([id number]) on 03/21/2018 10:08:03 PM Referred By: MALIK Confirmed By:ASAD MAC
== END 2018-03-17 14:35 | disposition home or self-care (01) ==
LOC: ERS 15:42 → 2SW 19:42
PROVIDERS: ADMIT Family Medicine; ATTEND Family Medicine
DX: R07.9 Chest pain, unspecified (principal); F41.1 Generalized anxiety disorder; I25.10 Atherosclerotic heart disease of native coronary artery without angina pectoris; E78.5 Hyperlipidemia, unspecified; E11.9 Type 2 diabetes mellitus without complications; I10 Essential (primary) hypertension; Z87.891 Personal history of nicotine dependence; Z79.02 Long term (current) use of antithrombotics/antiplatelets; Z79.82 Long term (current) use of aspirin; Z79.84 Long term (current) use of oral hypoglycemic drugs; Z79.899 Other long term (current) drug therapy; Z95.5 Presence of coronary angioplasty implant and graft
CPT/HCPCS: 71045; 80048; 80053; 82553; 82962 ×2; 84484 ×2; 85025; 93005 ×2; 99285; G0378 ×2; 36415; 36416; 93010

== ENCOUNTER 2021-03-02 14:10 | Emergency (ER) | payer MEDICARE, OTHER ==
[2021-03-02] MEDS ORDERED: traMADol HCl 50 MG TAB ONE (16:52)
[2021-03-02 17:36] LABS: #Lymphocytes 1.4 thou/uL (1.20-3.40); #Monocytes 0.6 thou/uL (0.11-0.59); #Neutrophils 4.9 thou/uL (1.40-6.50); %Basophils 0.5 % (0.0-1.0); %Eosinophils 0.2 % (0.0-10.0); %Lymphocytes 20.6 % (21.0-51.0); %Monocytes 8.5 % (0.0-10.0); %Neutrophils 70.1 % (42.0-75.0); Hemoglobin 13.1 g/dL (12.0-16.0); Mean Corpuscular HGB CONC 34.6 g/dL (32.0-36.0); Mean Corpuscular Hemoglobin 32.4 pg (27.0-31.0); Mean Corpuscular Volume 93.8 fL (78.0-98.0); Mean Platelet Volume 6.7 fL (7.4-10.4); Platelet Count 247 thou/uL (130-400); RBC Distribution Width 11.5 % (11.5-14.5); Red Blood Cell (RBC) Count 4.04 mill/uL (4.20-5.40)
[2021-03-02 17:52] LABS: ALT (SGPT) 17 U/L (8-55); AST (SGOT) 23 U/L (5-34); Albumin 4.1 g/dL (3.4-4.8); Alkaline Phosphatase 81 U/L (40-110); Anion Gap 15 mmol/L (10-20); BUN (Urea Nitrogen) 25 mg/dL (9.8-20.1); Bilirubin, Total 0.6 mg/dL (0.2-1.2); CK (CPK) 160 U/L (29-168); Calc. Creatinine Clearance 0 mL/min (70-130); Calcium 9.4 mg/dL (7.8-10.44); Carbon Dioxide 28 mmol/L (23-31); Chloride 103 mmol/L (98-107); Globulin 2.8 g/dL (2.4-3.5); Glucose 108 mg/dL (83-110); Potassium 4.3 mmol/L (3.5-5.1); Protein, Total 6.9 g/dL (5.8-8.1); Sodium 142 mmol/L (136-145)
== END 2021-03-02 22:24 | disposition home or self-care (01) ==
LOC: ERS 14:10
DX: T84.216A Breakdown (mechanical) of internal fixation device of vertebrae, initial encounter (principal); Z79.82 Long term (current) use of aspirin; Z79.899 Other long term (current) drug therapy; I10 Essential (primary) hypertension; E11.9 Type 2 diabetes mellitus without complications; W19.XXXA Unspecified fall, initial encounter; Z79.84 Long term (current) use of oral hypoglycemic drugs
CPT/HCPCS: 70450; 71045; 72125; 72128; 72131; 72170; 80053; 82550; 85025

== ENCOUNTER 2021-03-06 18:07 | Inpatient (IN) | payer MEDICARE, OTHER ==
[2021-03-06 18:47] LABS: #Eosinphils 0.1 thou/uL (0.0-0.7); #Lymphocytes 1.3 thou/uL (1.20-3.40); #Monocytes 0.4 thou/uL (0.11-0.59); #Neutrophils 3.6 thou/uL (1.40-6.50); %Basophils 0.8 % (0.0-1.0); %Lymphocytes 24.5 % (21.0-51.0); %Monocytes 6.9 % (0.0-10.0); %Neutrophils 66.8 % (42.0-75.0); Hemoglobin 11.9 g/dL (12.0-16.0); Mean Corpuscular HGB CONC 32.4 g/dL (32.0-36.0); Mean Corpuscular Hemoglobin 31.1 pg (27.0-31.0); Mean Platelet Volume 6.8 fL (7.4-10.4); Platelet Count 210 thou/uL (130-400); RBC Distribution Width 11.7 % (11.5-14.5); Red Blood Cell (RBC) Count 3.82 mill/uL (4.20-5.40); White Blood Cell (WBC) Count 5.4 thou/uL (4.8-10.8)
[2021-03-06 19:06] LABS: PTT 31.5 sec (22.9-36.1); Prothrombin Time 13.5 sec (12.0-14.7)
[2021-03-06 19:12] LABS: ALT (SGPT) 16 U/L (8-55); Albumin 3.6 g/dL (3.4-4.8); Alkaline Phosphatase 73 U/L (40-110); Anion Gap 10 mmol/L (10-20); BUN (Urea Nitrogen) 28 mg/dL (9.8-20.1); Bilirubin, Total 0.4 mg/dL (0.2-1.2); CK (CPK) 229 U/L (29-168); Calc. Creatinine Clearance 0 mL/min (70-130); Carbon Dioxide 31 mmol/L (23-31); Chloride 103 mmol/L (98-107); Globulin 2.6 g/dL (2.4-3.5); Glucose 254 mg/dL (83-110); Protein, Total 6.2 g/dL (5.8-8.1); Sodium 140 mmol/L (136-145)
[2021-03-06 19:20] LABS: AST (SGOT) 21 U/L (5-34)
[2021-03-06] MEDS ORDERED: Ondansetron PF 4 MG/2 ML Vial ONE (20:37)
[2021-03-06] MEDS ORDERED: Morphine 4 MG/ML VIAL ONE (20:37)
[2021-03-06 22:16] LABS: Bacteria/HPF 4+ HPF (None Seen); Bilirubin Negative (Negative); Blood, Urine 1+ (Negative); Clarity Clear (Clear); Glucose, Urine (Dipstick) 300 mg/dL (Negative); Ketone, Urine Negative (Negative); Leukocyte 500 Leu/uL (Negative); Nitrite 2+ (Negative); Protein, Urine (Dipstick) 70 mg/dL (Neg-Trace); Specific Gravity, Urine 1.032 (1.002-1.036); Squamous Epithelial 0-3 HPF (0-3); Urobilinogen Normal mg/dL (Less than 2); WBC/HPF 21-50 HPF (0-3); pH, Urine 5.5 (5.0-9.0)
[2021-03-06] MEDS ORDERED: cefTRIAXone\\ROCEPHIN 2 GM VIAL ONE (22:35)
[2021-03-07] MEDS ORDERED: Acetaminophen 325 MG TAB PO PRN (01:01)
[2021-03-07] MEDS ORDERED: HumaLOG 300 UNITS/3 ML VIAL SC PRN ×2 (01:01)
[2021-03-07] MEDS ORDERED: Dextrose 5% in Water 1,000 ML IV PRN (01:01)
[2021-03-07] MEDS ORDERED: Dextrose 50% Abboject 50 ML SYRINGE SLOW IVP PRN (01:01)
[2021-03-07] MEDS ORDERED: Acetaminophen 650 MG Suppository PR PRN (01:01)
[2021-03-07] MEDS ORDERED: Ondansetron PF 4 MG/2 ML Vial IVP PRN (01:01)
[2021-03-07] MEDS ORDERED: Ondansetron ODT 4 MG TAB PO PRN (01:01)
[2021-03-07] MEDS ORDERED: Morphine 4 MG/ML VIAL SLOW IVP PRN (01:19)
[2021-03-07 01:36] VITALS: BMI 26.2
[2021-03-07 06:27] LABS: #Eosinphils 0.1 thou/uL (0.0-0.7); #Lymphocytes 1.6 thou/uL (1.20-3.40); #Monocytes 0.5 thou/uL (0.11-0.59); #Neutrophils 4.6 thou/uL (1.40-6.50); %Basophils 0.1 % (0.0-1.0); %Eosinophils 1.2 % (0.0-10.0); %Lymphocytes 23.5 % (21.0-51.0); %Monocytes 7.2 % (0.0-10.0); Hemoglobin 11.5 g/dL (12.0-16.0); Mean Corpuscular HGB CONC 33.5 g/dL (32.0-36.0); Mean Corpuscular Volume 95.5 fL (78.0-98.0); Platelet Count 193 thou/uL (130-400); RBC Distribution Width 11.6 % (11.5-14.5); Red Blood Cell (RBC) Count 3.58 mill/uL (4.20-5.40); White Blood Cell (WBC) Count 6.8 thou/uL (4.8-10.8)
[2021-03-07 06:47] LABS: Anion Gap 8 mmol/L (10-20); BUN (Urea Nitrogen) 21 mg/dL (9.8-20.1); Calc. Creatinine Clearance 60 mL/min (70-130); Calcium 8.7 mg/dL (7.8-10.44); Carbon Dioxide 33 mmol/L (23-31); Chloride 105 mmol/L (98-107); Glucose 92 mg/dL (83-110); Potassium 3.8 mmol/L (3.5-5.1); Sodium 142 mmol/L (136-145)
[2021-03-07] MEDS: traMADol HCl 50 MG TAB PO PRN (09:09)
[2021-03-07] MEDS: Aspirin Chewable 81 MG TAB PO SCH (09:09)
[2021-03-07 12:30] LABS: SARS-CoV-2 PCR by NAA Not Detected (NotDetected)
[2021-03-07] MEDS ORDERED: Lorazepam 2 MG/ML VIAL SLOW IVP PRN (18:34)
[2021-03-07] MEDS: cefTRIAXone\\ROCEPHIN 1 GM in Sodium Chloride 0.9% 100 ML IVPB SCH (20:51)
[2021-03-07] MEDS: Donepezil HCl 5 MG TAB PO SCH (20:51)
[2021-03-07] MEDS: Atorvastatin Calcium 40 MG TAB PO SCH (20:51)
[2021-03-07] MEDS: Carvedilol 3.125 MG TAB PO SCH (20:51)
[2021-03-08] MEDS: Lidocaine 5% Patch TD SCH ×2 (03:07→17:04)
[2021-03-08] MEDS: Lidocaine Patch Removal TOP SCH (07:15)
[2021-03-08] MEDS: Aspirin Chewable 81 MG TAB PO SCH (08:59)
[2021-03-08] MEDS: Carvedilol 3.125 MG TAB PO SCH ×2 (09:00→20:57)
[2021-03-08] MEDS: Losartan 25 MG TAB PO SCH (09:01)
[2021-03-08] MEDS: glipiZIDE 10 MG TAB PO SCH (09:01)
[2021-03-08] MEDS: Clopidogrel Bisulfate 75 MG TAB PO SCH (09:01)
[2021-03-08] MEDS: Terazosin HCl 5 MG CAP PO SCH (09:01)
[2021-03-08] MEDS: traMADol HCl 50 MG TAB PO PRN ×2 (12:07→18:28)
[2021-03-08] MEDS: cefTRIAXone\\ROCEPHIN 1 GM in Sodium Chloride 0.9% 100 ML IVPB SCH (20:56)
[2021-03-08] MEDS: Atorvastatin Calcium 40 MG TAB PO SCH (20:57)
[2021-03-08] MEDS: Donepezil HCl 5 MG TAB PO SCH (20:57)
[2021-03-09] MEDS: Lidocaine Patch Removal TOP SCH (08:03)
[2021-03-09] MEDS: glipiZIDE 10 MG TAB PO SCH (08:11)
[2021-03-09] MEDS: Clopidogrel Bisulfate 75 MG TAB PO SCH (08:11)
[2021-03-09] MEDS: Aspirin Chewable 81 MG TAB PO SCH (08:11)
[2021-03-09] MEDS: Losartan 25 MG TAB PO SCH (08:13)
[2021-03-09] MEDS: Carvedilol 3.125 MG TAB PO SCH ×2 (08:13→21:09)
[2021-03-09] MEDS: Terazosin HCl 5 MG CAP PO SCH (08:13)
[2021-03-09] MEDS: Lidocaine 5% Patch TD SCH (16:55)
[2021-03-09] MEDS: cefTRIAXone\\ROCEPHIN 1 GM in Sodium Chloride 0.9% 100 ML IVPB SCH (21:08)
[2021-03-09] MEDS: Donepezil HCl 5 MG TAB PO SCH (21:09)
[2021-03-09] MEDS: Atorvastatin Calcium 40 MG TAB PO SCH (21:09)
[2021-03-10] MEDS: Lidocaine Patch Removal TOP SCH (05:42)
[2021-03-10] MEDS: Clopidogrel Bisulfate 75 MG TAB PO SCH (09:59)
[2021-03-10] MEDS: Terazosin HCl 5 MG CAP PO SCH (09:59)
[2021-03-10] MEDS: Losartan 25 MG TAB PO SCH (10:00)
[2021-03-10] MEDS: Aspirin Chewable 81 MG TAB PO SCH (10:00)
[2021-03-10] MEDS: Carvedilol 3.125 MG TAB PO SCH ×2 (10:00→20:24)
[2021-03-10] MEDS: glipiZIDE 10 MG TAB PO SCH (10:00)
[2021-03-10] MEDS: traMADol HCl 50 MG TAB PO PRN (10:01)
[2021-03-10] MEDS: Lidocaine 5% Patch TD SCH (18:30)
[2021-03-10] MEDS: Atorvastatin Calcium 40 MG TAB PO SCH (20:24)
[2021-03-10] MEDS: cefTRIAXone\\ROCEPHIN 1 GM in Sodium Chloride 0.9% 100 ML IVPB SCH (20:24)
[2021-03-10] MEDS: Donepezil HCl 5 MG TAB PO SCH (20:24)
[2021-03-11] MEDS: Lidocaine Patch Removal TOP SCH (05:31)
[2021-03-11 06:06] LABS: #Eosinphils 0.1 thou/uL (0.0-0.7); #Lymphocytes 1.4 thou/uL (1.20-3.40); #Monocytes 0.5 thou/uL (0.11-0.59); #Neutrophils 4.4 thou/uL (1.40-6.50); %Basophils 0.1 % (0.0-1.0); %Lymphocytes 21.6 % (21.0-51.0); %Monocytes 8.1 % (0.0-10.0); %Neutrophils 69.2 % (42.0-75.0); Hemoglobin 11.6 g/dL (12.0-16.0); Mean Corpuscular HGB CONC 33.3 g/dL (32.0-36.0); Mean Corpuscular Hemoglobin 31.8 pg (27.0-31.0); Mean Corpuscular Volume 95.6 fL (78.0-98.0); Mean Platelet Volume 7.2 fL (7.4-10.4); Platelet Count 187 thou/uL (130-400); RBC Distribution Width 11.7 % (11.5-14.5); Red Blood Cell (RBC) Count 3.64 mill/uL (4.20-5.40); White Blood Cell (WBC) Count 6.4 thou/uL (4.8-10.8)
[2021-03-11 06:32] LABS: Anion Gap 9 mmol/L (10-20); BUN (Urea Nitrogen) 25 mg/dL (9.8-20.1); Calc. Creatinine Clearance 62 mL/min (70-130); Calcium 8.8 mg/dL (7.8-10.44); Carbon Dioxide 28 mmol/L (23-31); Chloride 106 mmol/L (98-107); Glucose 107 mg/dL (83-110); Potassium 4.1 mmol/L (3.5-5.1); Sodium 139 mmol/L (136-145)
[2021-03-11 07:59] VITALS: TEMP 98.3
[2021-03-11] MEDS: Terazosin HCl 5 MG CAP PO SCH (10:15)
[2021-03-11] MEDS: Aspirin Chewable 81 MG TAB PO SCH (10:15)
[2021-03-11] MEDS: Clopidogrel Bisulfate 75 MG TAB PO SCH (10:15)
[2021-03-11] MEDS: Losartan 25 MG TAB PO SCH (10:16)
[2021-03-11] MEDS: Carvedilol 3.125 MG TAB PO SCH (10:16)
[2021-03-11] MEDS: glipiZIDE 10 MG TAB PO SCH (10:18)
[2021-03-11 16:03] VITALS: BP 145/80
== END 2021-03-11 16:10 | DRG 689 ==
LOC: ERS 18:07 → SURG A 22:59 → OBSVTOIN 03-08 12:17
PROVIDERS: ADMIT Student in an Organized Health Care Education/Training Program; ATTEND Internal Medicine
DX: N39.0 Urinary tract infection, site not specified (principal); G93.41 Metabolic encephalopathy; Z20.822 Contact with and (suspected) exposure to COVID-19; I10 Essential (primary) hypertension; E78.5 Hyperlipidemia, unspecified; D64.9 Anemia, unspecified; G89.29 Other chronic pain; M54.9 Dorsalgia, unspecified; Z79.84 Long term (current) use of oral hypoglycemic drugs; Z79.899 Other long term (current) drug therapy; Z90.710 Acquired absence of both cervix and uterus; Z98.890 Other specified postprocedural states
CPT/HCPCS: 36415; 36416; 80048; 80053; 81003; 81015; 82550; 84484; 85025; 85610; 85730; 93005; 93306; 96366; 96375; G0378; J0696; J1815; J2060; J2270; J2405; J3490; U0003; U0005

== ENCOUNTER 2022-02-26 17:17 | Inpatient (IN) | payer MEDICARE, OTHER ==
[2022-02-26 17:48] LABS: #Lymphocytes 1.9 thou/uL (1.20-3.40); #Monocytes 0.5 thou/uL (0.11-0.59); #Neutrophils 3.6 thou/uL (1.40-6.50); %Basophils 0.1 % (0.0-1.0); %Eosinophils 0.8 % (0.0-10.0); %Lymphocytes 31.2 % (21.0-51.0); %Monocytes 7.7 % (0.0-10.0); %Neutrophils 60.2 % (42.0-75.0); Mean Corpuscular HGB CONC 31.6 g/dL (32.0-36.0); Mean Corpuscular Hemoglobin 31.1 pg (27.0-31.0); Mean Corpuscular Volume 98.4 fl (78.0-98.0); Mean Platelet Volume 7.3 fL (7.4-10.4); Platelet Count 185 thou/uL (130-400); RBC Distribution Width 12.4 % (11.5-14.5); Red Blood Cell (RBC) Count 3.55 mill/uL (4.20-5.40)
[2022-02-26 18:03] LABS: ALT (SGPT) 27 U/L (8-55); AST (SGOT) 25 U/L (5-34); Albumin 3.2 g/dL (3.4-4.8); Alkaline Phosphatase 53 U/L (40-110); Anion Gap 8 mmol/L (10-20); BUN (Urea Nitrogen) 19 mg/dL (9.8-20.1); Bilirubin, Total 0.3 mg/dL (0.2-1.2); CRP (Inflammatory) Less than 0.50 mg/dL (= or < 0.5); Calc. Creatinine Clearance 0 mL/min (70-130); Calcium 8.4 mg/dL (7.8-10.44); Carbon Dioxide 32 mmol/L (23-31); Chloride 103 mmol/L (98-107); Estimated GFR 85; Globulin 2.3 g/dL (2.4-3.5); Glucose 118 mg/dL (83-110); Potassium 4.1 mmol/L (3.5-5.1); Protein, Total 5.5 g/dL (5.8-8.1); Sodium 139 mmol/L (136-145)
[2022-02-26] MEDS ORDERED: Ondansetron ODT 4 MG TAB SL PRN (19:15)
[2022-02-26] MEDS ORDERED: Ondansetron PF 4 MG/2 ML Vial IVP PRN (19:15)
[2022-02-26 19:26] LABS: Bacteria/HPF 4+ HPF (None Seen); Bilirubin Negative (Negative); Blood, Urine Trace (Negative); Clarity Clear (Clear); Glucose, Urine (Dipstick) Normal (Negative); Ketone, Urine Negative (Negative); Leukocyte 250 Leu/uL (Negative); Nitrite 2+ (Negative); Protein, Urine (Dipstick) 30 mg/dL (Neg-Trace); RBC/HPF 0-3 HPF (0-3); Specific Gravity, Urine 1.031 (1.002-1.036); Squamous Epithelial 0-3 HPF (0-3); Urobilinogen Normal mg/dL (Less than 2); pH, Urine 5.5 (5.0-9.0)
[2022-02-26] MEDS ORDERED: HYDROcodone/Acetaminophen 5/325 mg Tablet PO PRN (21:41)
[2022-02-26] MEDS ORDERED: Dextrose 5% in Water 1,000 ML IV PRN (21:41)
[2022-02-26] MEDS ORDERED: Bisacodyl 5 MG TAB PO PRN (21:41)
[2022-02-26] MEDS ORDERED: Dextrose 50% Abboject 50 ML SYRINGE SLOW IVP PRN (21:41)
[2022-02-26] MEDS ORDERED: hydrALAZINE 20 MG/ML VIAL SLOW IVP PRN (21:41)
[2022-02-26] MEDS ORDERED: HumaLOG 300 UNITS/3 ML VIAL SC PRN ×2 (21:41)
[2022-02-26] MEDS ORDERED: Morphine 4 MG/ML VIAL SLOW IVP PRN (22:20)
[2022-02-26 22:23] VITALS: BMI 29.2
[2022-02-26] MEDS: Acetaminophen 325 MG TAB PO PRN (22:54)
[2022-02-26] MEDS: Sodium Chloride 0.9% 1,000 ML IV SCH (22:54)
[2022-02-26] MEDS: cefTRIAXone\\ROCEPHIN 1 GM in Sodium Chloride 0.9% 100 ML IVPB SCH (22:54)
[2022-02-26] MEDS: Lidocaine 5% Patch TD SCH (22:55)
[2022-02-27 05:30] LABS: #Eosinphils 0.1 thou/uL (0.0-0.7); #Monocytes 0.5 thou/uL (0.11-0.59); #Neutrophils 3.9 thou/uL (1.40-6.50); %Basophils 0.4 % (0.0-1.0); %Eosinophils 0.8 % (0.0-10.0); %Lymphocytes 30.5 % (21.0-51.0); %Neutrophils 60.3 % (42.0-75.0); Hemoglobin 10.7 g/dL (12.0-16.0); Mean Corpuscular HGB CONC 31.6 g/dL (32.0-36.0); Mean Corpuscular Volume 98.2 fl (78.0-98.0); Mean Platelet Volume 7.4 fL (7.4-10.4); Platelet Count 175 thou/uL (130-400); RBC Distribution Width 12.4 % (11.5-14.5); Red Blood Cell (RBC) Count 3.44 mill/uL (4.20-5.40); White Blood Cell (WBC) Count 6.4 thou/uL (4.8-10.8)
[2022-02-27 05:50] LABS: ALT (SGPT) 22 U/L (8-55); AST (SGOT) 20 U/L (5-34); Alkaline Phosphatase 45 U/L (40-110); Anion Gap 9 mmol/L (10-20); BUN (Urea Nitrogen) 15 mg/dL (9.8-20.1); Bilirubin, Total 0.4 mg/dL (0.2-1.2); Calc. Creatinine Clearance 74 mL/min (70-130); Calcium 8.2 mg/dL (7.8-10.44); Carbon Dioxide 29 mmol/L (23-31); Cardiac Risk 2.8 (Less than 4.5); Chloride 106 mmol/L (98-107); Cholesterol 88 mg/dl (< 200 Desired); Estimated GFR 91; Globulin 2.1 g/dL (2.4-3.5); Glucose 64 mg/dL (83-110); HDL Cholesterol 32 mg/dL (>60 Neg Risk); LDL Cholesterol, Calculated 43 mg/dL; Potassium 3.8 mmol/L (3.5-5.1); Protein, Total 5.1 g/dL (5.8-8.1); Sodium 140 mmol/L (136-145); Triglycerides 67 mg/dL (Less than 150)
[2022-02-27] MEDS: Acetaminophen 325 MG TAB PO PRN (06:42)
[2022-02-27] MEDS: Enoxaparin Sodium 30 MG/0.3 ML SYRINGE SC SCH (08:54)
[2022-02-27] MEDS: traMADol HCl 50 MG TAB PO PRN ×2 (08:54→17:16)
[2022-02-27] MEDS: Terazosin HCl 5 MG CAP PO SCH (08:54)
[2022-02-27] MEDS: Famotidine 20 MG TAB PO SCH ×2 (08:55→21:34)
[2022-02-27] MEDS: Sertraline 25 MG TAB PO SCH (08:55)
[2022-02-27] MEDS: Aspirin 81 mg Enteric Coated Tablet PO SCH (08:55)
[2022-02-27] MEDS: Clopidogrel Bisulfate 75 MG TAB PO SCH (08:55)
[2022-02-27] MEDS: glipiZIDE 10 MG TAB PO SCH (08:55)
[2022-02-27] MEDS: Carvedilol 3.125 MG TAB PO SCH ×2 (08:56→21:35)
[2022-02-27] MEDS: Losartan 25 MG TAB PO SCH (08:56)
[2022-02-27] MEDS ORDERED: Lidocaine 5% Patch TD SCH (09:00)
[2022-02-27] MEDS: Transdermal Patch Removal TOP SCH (11:10)
[2022-02-27] MEDS: Sodium Chloride 0.9% 1,000 ML IV SCH (11:10)
[2022-02-27] MEDS: Zolpidem Tartrate 5 MG TAB PO PRN (21:33)
[2022-02-27] MEDS: cefTRIAXone\\ROCEPHIN 1 GM in Sodium Chloride 0.9% 100 ML IVPB SCH (21:33)
[2022-02-27] MEDS: Donepezil HCl 5 MG TAB PO SCH (21:34)
[2022-02-27] MEDS: Atorvastatin Calcium 40 MG TAB PO SCH (21:35)
[2022-02-28] MEDS: Lidocaine 5% Patch TD SCH ×2 (00:15→23:00)
[2022-02-28] MEDS: Sodium Chloride 0.9% 1,000 ML IV SCH ×2 (00:52→14:29)
[2022-02-28] MEDS: Enoxaparin Sodium 30 MG/0.3 ML SYRINGE SC SCH (08:19)
[2022-02-28] MEDS: Sertraline 25 MG TAB PO SCH (08:20)
[2022-02-28] MEDS: Losartan 25 MG TAB PO SCH (08:20)
[2022-02-28] MEDS: Carvedilol 3.125 MG TAB PO SCH ×2 (08:20→21:11)
[2022-02-28] MEDS: glipiZIDE 10 MG TAB PO SCH (08:20)
[2022-02-28] MEDS: Terazosin HCl 5 MG CAP PO SCH (08:20)
[2022-02-28] MEDS: Clopidogrel Bisulfate 75 MG TAB PO SCH (08:20)
[2022-02-28] MEDS: Famotidine 20 MG TAB PO SCH ×2 (08:20→21:10)
[2022-02-28] MEDS: Aspirin 81 mg Enteric Coated Tablet PO SCH (08:24)
[2022-02-28] MEDS: Transdermal Patch Removal TOP SCH (10:47)
[2022-02-28 17:34] LABS: Glucose 87 mg/dL (83-110)
[2022-02-28] MEDS: Donepezil HCl 5 MG TAB PO SCH (21:10)
[2022-02-28] MEDS: Atorvastatin Calcium 40 MG TAB PO SCH (21:10)
[2022-02-28] MEDS: Zolpidem Tartrate 5 MG TAB PO PRN (22:59)
[2022-02-28] MEDS: cefTRIAXone\\ROCEPHIN 1 GM in Sodium Chloride 0.9% 100 ML IVPB SCH (23:00)
[2022-03-01] MEDS: Sodium Chloride 0.9% 1,000 ML IV SCH (05:34)
[2022-03-01 05:43] LABS: #Eosinphils 0.1 thou/uL (0.0-0.7); #Lymphocytes 1.2 thou/uL (1.20-3.40); #Monocytes 0.4 thou/uL (0.11-0.59); #Neutrophils 3.1 thou/uL (1.40-6.50); %Basophils 0.7 % (0.0-1.0); %Eosinophils 1.4 % (0.0-10.0); %Lymphocytes 25.2 % (21.0-51.0); %Monocytes 9.2 % (0.0-10.0); %Neutrophils 63.5 % (42.0-75.0); Hemoglobin 11.1 g/dL (12.0-16.0); Mean Corpuscular HGB CONC 31.7 g/dL (32.0-36.0); Mean Corpuscular Hemoglobin 31.4 pg (27.0-31.0); Mean Corpuscular Volume 98.8 fl (78.0-98.0); Mean Platelet Volume 7.1 fL (7.4-10.4); Platelet Count 165 thou/uL (130-400); RBC Distribution Width 12.3 % (11.5-14.5); Red Blood Cell (RBC) Count 3.54 mill/uL (4.20-5.40); White Blood Cell (WBC) Count 4.8 thou/uL (4.8-10.8)
[2022-03-01 06:03] LABS: Anion Gap 10 mmol/L (10-20); BUN (Urea Nitrogen) 7 mg/dL (9.8-20.1); Calc. Creatinine Clearance 74 mL/min (70-130); Calcium 8.8 mg/dL (7.8-10.44); Carbon Dioxide 27 mmol/L (23-31); Chloride 106 mmol/L (98-107); Estimated GFR 91; Glucose 92 mg/dL (83-110); Potassium 3.7 mmol/L (3.5-5.1); Sodium 139 mmol/L (136-145)
[2022-03-01] MEDS: Carvedilol 3.125 MG TAB PO SCH (08:49)
[2022-03-01] MEDS: Losartan 25 MG TAB PO SCH (08:49)
[2022-03-01] MEDS: Clopidogrel Bisulfate 75 MG TAB PO SCH (08:49)
[2022-03-01] MEDS: Sertraline 25 MG TAB PO SCH (08:50)
[2022-03-01] MEDS: Terazosin HCl 5 MG CAP PO SCH (08:50)
[2022-03-01] MEDS: Aspirin 81 mg Enteric Coated Tablet PO SCH (08:50)
[2022-03-01] MEDS: glipiZIDE 10 MG TAB PO SCH (08:50)
[2022-03-01] MEDS: Famotidine 20 MG TAB PO SCH (08:50)
[2022-03-01] MEDS ORDERED: Enoxaparin Sodium 40 MG/0.4 ML SYRINGE SC SCH (09:00)
[2022-03-01 12:07] VITALS: BP 136/66; TEMP 97.7
[2022-03-01] MEDS: Transdermal Patch Removal TOP SCH (12:42)
[2022-03-02 17:21] LABS: ANA Symphony (Qualitative) Negative (Negative); ANA Symphony (Quantitative) 0.3 Ratio (< 0.7 Negative)
== END 2022-03-01 16:30 | disposition home health service (06) | DRG 557 ==
LOC: ERS 17:17 → NEURO 19:08 → OBSVTOIN 02-27 14:54
PROVIDERS: ADMIT Internal Medicine; ATTEND Internal Medicine
DX: M75.02 Adhesive capsulitis of left shoulder (principal); L89.153 Pressure ulcer of sacral region, stage 3; N39.0 Urinary tract infection, site not specified; Z66 Do not resuscitate; Z20.822 Contact with and (suspected) exposure to COVID-19; M75.102 Unspecified rotator cuff tear or rupture of left shoulder, not specified as traumatic; I10 Essential (primary) hypertension; E11.9 Type 2 diabetes mellitus without complications; G89.29 Other chronic pain; M54.9 Dorsalgia, unspecified; M25.552 Pain in left hip; Z74.01 Bed confinement status; Z79.899 Other long term (current) drug therapy; Z79.84 Long term (current) use of oral hypoglycemic drugs; Z79.02 Long term (current) use of antithrombotics/antiplatelets; Z90.710 Acquired absence of both cervix and uterus; Z98.890 Other specified postprocedural states
CPT/HCPCS: 36415; 36416; 51701; 70450; 70551; 71045; 72125; 80048; 80053; 80061; 81003; 81015; 82947; 85025; 86038; 86140; 86225; 93005; 93306; 96372; 96374; G0378; J0696; J1650; J3490; J7050; U0003; U0005